=== PATIENT | female | born 1955 | race American Indian/Alaskan Native ===

== ENCOUNTER 2016-05-05 13:35 | Emergency (ER) | payer BC ==
--- NOTE | 2016-05-05 14:40 | Emergency Department Report ---
HPI - General Chief Complaint: Vaginal Bleeding Time Seen by Provider: 05/05/16 14:13 - HPI HPI: This is a 60-year-old -Turkish female who presents to the emergency department with a 2 to three-day history of heavy vaginal bleeding. This is more of a acute on chronic issue as the patient has been dealing with vaginal bleeding issues for months. The patient says she has had ultrasounds and CT scans and they have not found any signs of fibroids or any malignancy. The patient is scheduled to have a hysteroscopy on Thursday to further look into her bleeding etiology. Patient follows with Dr. Rivera for [employer]. They previously had tried progesterone but that did not work. Patient was placed on oral contraception as which did help slow the bleeding, but the patient ran out on , and her symptoms began 1-2 days after. She called the [employer] service and was told to come to the emergency department for further evaluation. She denies any shortness of breath, fever, nausea, vomiting, back pain. Patient was told by a pharmacist to take some ibuprofen which did help with some of the discomfort but did not help with the bleeding. Patient says she is going through a pad about every 30 minutes to 1 hour. ED Past Medical Hx - Medications Home Medications: Home Medications Medication Instructions Recorded Confirmed Last Taken Type Meloxicam 15 mg PO QDAY PRN 05/05/16 05/05/16 Unknown History Naproxen [Naproxen TAB] 250 mg PO PRN PRN 05/05/16 05/05/16 Unknown History ED Review of Systems ROS: Stated complaint: BLOOD CLOTS Other details as noted in HPI Comment: All other systems reviewed and negative Constitutional: denies: chills, fever Eyes: denies: eye pain, eye discharge, vision change ENT: denies: ear pain, throat pain Respiratory: denies: cough, shortness of breath, wheezing Cardiovascular: denies: chest pain, palpitations Gastrointestinal: abdominal pain. denies: nausea, diarrhea Genitourinary: other (vaginal bleeding). denies: urgency, dysuria, discharge Musculoskeletal: denies: back pain, joint swelling, arthralgia Skin: denies: rash, lesions Physical Exam - Physical Exam Vital Signs: Vital Signs 05/05/16 13:58 Temperature 97.9 F Pulse Rate 86 Respiratory 16 Rate Blood Pressure 144/79 O2 Sat by Pulse 100 Oximetry Physical Exam: GENERAL: The patient is well-developed well-nourished. HEENT: Normocephalic. Atraumatic. Extraocular motions are intact. Patient has moist mucous membranes. Pupils equal reactive to light bilaterally. NECK: Supple. Trachea is midline. CHEST/LUNGS: Clear to auscultation. There is no respiratory distress noted. HEART/CARDIOVASCULAR: Regular. There is no tachycardia. There is no gallop rub or murmur. ABDOMEN: Abdomen is soft, nontender. Patient has normal bowel sounds. There is no abdominal distention. SKIN: There is no rash. There is no edema. There is no diaphoresis. NEURO: The patient is awake, alert, and oriented. The patient is cooperative. The patient has no focal neurologic deficits. The patient has normal speech. MUSCULOSKELETAL: There is no tenderness or deformity. There is no limitation range of motion. There is no evidence of acute injury. Cap refill less than 2 seconds. ED Course Vital Signs 05/05/16 13:58 Temperature 97.9 F Pulse Rate 86 Respiratory 16 Rate Blood Pressure 144/79 O2 Sat by Pulse 100 Oximetry - Consultations Consultation #1: I spoke with Dr. Houston, on-call for Dr. Rivera. She recommends that the patient get a IV dose of Premarin 25 mg 1. She was able to tell me that the patient has an appointment with Dr. Rivera for preop tomorrow morning. She suggests giving the patient the primary and and having her follow-up tomorrow for her scheduled appointment. 05/05/16 15:55 ED Medical Decision Making - Lab Data Result diagrams: 05/05/16 14:55 05/05/16 14:55 - Medical Decision Making 60-year-old female with acute on chronic vaginal bleeding that has gotten heavy over the last 2 days. Patient's labs have shown to be relatively unremarkable with a hemoglobin of 12. No signs of infection, electrolyte abnormalities, renal insufficiency her glucose abdomen maladies. Patient's vital signs are stable including being afebrile and no tachycardia. There does not appear to be any symptomatic anemia, even before the labs were checked. I spoke with the [employer] service for this patient and they suggest a dose of Premarin and for the patient to keep her appointment tomorrow with Dr. Rivera. All this information was given to the patient. She does appear stable for discharge home at this time. She will follow-up with her appointment tomorrow but will return to the ER sooner with any worsening or symptoms or any acute distress. Critical Care Time: No Critical care attestation.: If time is entered above; I have spent that time in minutes in the direct care of this critically ill patient, excluding procedure time. ED Disposition Clinical Impression: Vaginal bleeding Disposition: DISCHARGED TO HOME OR SELFCARE Is pt being admited?: No Does the pt Need Aspirin: No Condition: Good Instructions: Menorrhagia (ED) Additional Instructions: Please follow-up with Dr. Rivera for your appointment tomorrow as previously scheduled. Return to the emergency department with any worsening of your symptoms or any acute distress. Referrals: PRIMARY CARE, [Primary Care Provider] - 3-5 Days WONG RIVERA MD [Staff Physician] - 05/06/16 Time of Disposition: 17:17
[2016-05-05 15:18] LABS: Basophils % (Auto) 0.3 % (0.0-1.8); Eosinophils % (Auto) 1.7 % (0.0-4.3); Hematocrit 36.1 % (30.3-42.9); Hemoglobin 12.1 gm/dl (10.1-14.3); Mean Corpuscular HGB Conc 34 % (30-34); Mean Corpuscular Hemoglobin 29 pg (28-32); Mean Corpuscular Volume 85 fl (79-97); Platelet Count 325 K/mm3 (140-440); Red Blood Count 4.25 M/mm3 (3.65-5.03); Red Cell Distribution Width 14.7 % (13.2-15.2); White Blood Count 8.8 K/mm3 (4.5-11.0)
[2016-05-05 15:29] LABS: BUN/Creatinine Ratio 12.22; Blood Urea Nitrogen 11 mg/dL (7-17); Calcium 9.4 mg/dL (8.4-10.2); Carbon Dioxide 21 mmol/L (22-30); Chloride 102.6 mmol/L (98-107); Glucose 123 mg/dL (65-100); INR 0.99 (0.87-1.13); Partial Thromboplastin Time 23.9 Sec. (24.2-36.6); Potassium 4.1 mmol/L (3.6-5.0); Sodium 140 mmol/L (137-145)
[2016-05-05 15:33] LABS: Anion Gap 21 mmol/L
[2016-05-05] MEDS ORDERED: PREMARIN IV ONE (15:48)
[2016-05-05] MEDS ORDERED: WATER FOR INJ (PF) 10 ML ONE (17:33)
[2016-05-05] MEDS ORDERED: NACL 0.9% 500 ML 500 ML ONE (17:44)
[2016-05-05] MEDS ORDERED: NACL 0.9% 500 ML 500 ML IV ONE (18:00)
[2016-05-05 18:38] VITALS: BP 141/91
== END 2016-05-05 18:30 | disposition home or self-care (01) ==
LOC: ED 13:35
DX: N93.9 Abnormal uterine and vaginal bleeding, unspecified (principal)
CPT/HCPCS: 36415; 80048; 85025; 85610; 85730; 86850; 86900; 86901; 96374; 99283; J1410; J7040

== ENCOUNTER 2016-05-09 08:32 | Day surgery (SDC) | payer BC ==
--- NOTE | 2016-05-06 13:59 | Anesthesia Consultation ---
Anesthesia Consult and Med Hx Date of service: 05/06/16 (Scheduled for Hysteroscopy and D&C w/ Dr. Davalos on 05/09/16) - Airway Anesthetic Teeth Evaluation: Good ROM Head & Neck: Adequate Mental/Hyoid Distance: Adequate Mallampati Class: Class II Intubation Access Assessment: Probably Good - Pulmonary Exam CTA: Yes - Cardiac Exam Cardiac Exam: RRR - Pre-Operative Health Status ASA Pre-Surgery Classification: ASA2 Proposed Anesthetic Plan: General - Pre-Anesthesia Comment Pre-Anesthesia Comments: No previous anesthesia complications. - Pulmonary Hx Smoking: No Hx Asthma: No - Cardiovascular System Hx Hypertension: No - Central Nervous System Hx Psychiatric Problems: No - Gastrointestinal Hx Gastroesophageal Reflux Disease: No - Endocrine Hx Renal Disease: No Hx Non-Insulin Dependent Diabetes: No Hx Thyroid Disease: No - Hematic Hx Anemia: Yes (Was in ER last 2 days for vaginal bleeding) Hx Sickle Cell Disease: No - Other Systems Hx Alcohol Use: No Hx Cancer: No Hx Obesity: No
--- NOTE | 2016-05-08 15:27 | History and Physical Report ---
History of Present Illness Date of examination: 05/06/16 History of present illness: Patient has been reassessed/reevaluated/re-examined. H&P has been reviewed. No interval changes. This is a 60 years old female who presents withpost menopausal bleeding. The symptoms began 1 month ago. The patient complains of menses and heavy bleeding. Menstrual periods have been irregular and with excessive flow. Patient has failled medical therapy. Patient's work up has included hysterosonogram w/o lesions and a benign endometrial biiopsy Patient desires definitive treatment Vital Signs: Patient Profile: 60 Years Old Female Height: 63 inches (160.02 cm) Weight: 216 pounds (98.18 kg) BMI: 38.26 BSA: 2.00 Past History : 2 Term Births: 2 Premature Births: 0 Living Children: 2 Para: 2 Mult. Births: 0 Prev : 0 Prev. attempt? 0 Aborta: 0 Elect. Ab: 0 Spont. 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 Risk Factors: Smoked Tobacco Use: Never smoker Smokeless Tobacco Use: Never Passive smoke exposure: no Drug use: no HIV high-risk behavior: no Alcohol use: no Exercise: no Seatbelt use: 100 % Review of Systems See HPI General Complains of fatigue. Denies fever, chills, sweats, anorexia, weakness, malaise, weight loss and sleep disorder. Complains of abnormal vaginal bleeding. Denies vaginal discharge, incontinence, dysuria, hematuria, urinary frequency, amenorrhea, menorrhagia, pelvic pain, genital sores, decreased libido , painful periods, painful sex, urinary urgency, hot flashes, vaginal dryness, vaginal itching and vaginal odor. CV Denies chest pains, palpitations, syncope, dyspnea on exertion, orthopnea, PND and peripheral edema. Resp Denies cough, dyspnea at rest, excessive sputum, hemoptysis, wheezing and pleurisy. GI Denies nausea, vomiting, diarrhea, constipation, change in bowel habits, abdominal pain, melena, hematochezia, jaundice, gas/bloating, indigestion/ heartburn, dysphagia and odynophagia. Breast Denies left breast lump, right breast lump, nipple discharge, bloody discharge from nipple, breast pain, abnormal mammogram and breast enlargement. Psych Denies depression, anxiety, irritability and mood swings. Past History Past Medical History: other (See HPI) Past Surgical History: Other (See HPI) Family history: other (See HPI) Medications and Allergies Allergies Allergy/AdvReac Type Severity Reaction Status Date / Time No Known Allergies Allergy Unverified 05/05/16 15:59 Home Medications Medication Instructions Recorded Confirmed Last Taken Type Meloxicam 15 mg PO QDAY PRN 05/05/16 05/09/16 05/02/16 History Naproxen [Naproxen TAB] 250 mg PO PRN PRN 05/05/16 05/09/16 04/25/16 History Active Meds: Active Medications Celecoxib (Celebrex) 200 mg PO PREOP NR Stop: 05/09/16 23:29 Famotidine (Pepcid) 20 mg PO PREOP NR Stop: 05/09/16 23:29 Gabapentin (Neurontin) 300 mg PO PREOP NR Stop: 05/09/16 23:59 Sodium Chloride (Nacl 0.9% 1000 Ml) 1,000 mls @ 100 mls/hr IV DIRECT PAUL Midazolam HCl (Versed) 2 mg IV PREOP NR Stop: 05/09/16 23:59 Review of Systems Constitutional: other (See HPI) Exam - Physical Exam Narrative exam: HEENT: normocephalic, no lesions or deformities Skin no significant abnormal lesions or rashes Chest: respiratory effort normal, clear to auscultation CV: regular, normal S1-S2, no murmur, no rub, no gallop Abdomen: Obese, normal bowel sounds, soft, nontender, no HSM Musculoskeletal: grossly normal ROM in joints, no joint tenderness or muscle weakness Neuro: no gross anomalities Extremities: no clubbing, cyanosis, or edema [employer]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 Questions answered. Diagnosis of post menopausal explained. Malignancy risk explained to patient. Medical and surgical treatment options discussed Patient has failed medical therapy Patient desires definitive treatment. Patient declined hysterectomy. Patient desires conservative therapy Patient desires hysteroscopy Discussed risk of surgery including infection, bleeding and risk of perforating her uterus. Questions answered. Patient understands and desires to proceed
[~2016-05-09 08:32] MED LIST: NACL 0.9% 1000 ML 1,000 ML IV SCH; NEURONTIN PO NR; PEPCID PO NR; VERSED IV NR
[2016-05-09] MEDS ORDERED: PERCOCET 5/325 PO PRN (08:54)
[2016-05-09] MEDS ORDERED: ZOFRAN IV PRN (08:54)
[2016-05-09] MEDS ORDERED: DILAUDID IV PRN (08:54)
[2016-05-09] MEDS ORDERED: DIPRIVAN 10 MG/ML IV ONE (09:52)
[2016-05-09] MEDS ORDERED: SUBLIMAZE ONE (09:52)
[2016-05-09] MEDS ORDERED: NACL 0.9% IR ONE (10:27)
--- NOTE | 2016-05-09 10:27 | Anesthesia Day of Surgery ---
Anesthesia Day of Surgery - Day of Surgery Patient Examined: Yes Patient H&P Reviewed: Yes Patient is NPO: Yes
[2016-05-09] MEDS ORDERED: XYLOCAINE MPF 2% ONE (10:33)
[2016-05-09] MEDS ORDERED: TORADOL ONE (10:33)
[2016-05-09] MEDS ORDERED: ZOFRAN ONE (10:33)
[2016-05-09] MEDS ORDERED: ePHEDrine SULFATE ONE (10:35)
--- NOTE | 2016-05-09 10:53 | Short Stay Summary ---
Short Stay Documentation Date of service: 05/09/16 Narrative H&P: See dictated H&P - History Past Medical History: other (See HPI) Past Surgical History: Other (See HPI) - Allergies and Medications Current Medications: Allergies No Known Allergies Allergy (Unverified 05/05/16 15:59) Home Medications Medication Instructions Recorded Confirmed Last Taken Type Meloxicam 15 mg PO QDAY PRN 05/05/16 05/09/16 05/02/16 History Naproxen [Naproxen TAB] 250 mg PO PRN PRN 05/05/16 05/09/16 04/25/16 History Active Medications Celecoxib (Celebrex) 200 mg PO PREOP NR Stop: 05/09/16 23:29 Last Admin: 05/09/16 09:12 Dose: 200 mg Famotidine (Pepcid) 20 mg PO PREOP NR Stop: 05/09/16 23:29 Last Admin: 05/09/16 09:12 Dose: 20 mg Gabapentin (Neurontin) 300 mg PO PREOP NR Stop: 05/09/16 23:59 Last Admin: 05/09/16 09:12 Dose: 300 mg Hydromorphone HCl (Dilaudid) 0.5 mg IV Q10MIN PRN PRN Reason: Pain , Severe (7-10) Stop: 05/09/16 18:00 Sodium Chloride (Nacl 0.9% 1000 Ml) 1,000 mls @ 100 mls/hr IV DIRECT PAUL Last Admin: 05/09/16 09:25 Dose: 100 mls/hr Midazolam HCl (Versed) 2 mg IV PREOP NR Stop: 05/09/16 23:59 Last Admin: 05/09/16 09:35 Dose: 2 mg Ondansetron HCl (Zofran) 4 mg IV ONCE PRN PRN Reason: Nausea And Vomiting Stop: 05/09/16 18:00 Oxycodone/Acetaminophen (Percocet 5/325) 1 tab PO ONCE PRN PRN Reason: Pain, Moderate (4-6) Stop: 05/09/16 18:00 - Brief post op/procedure progress note Date of procedure: 05/09/16 Pre-op diagnosis: see dictated operative note - Hospital course Hospital course: Patient was admitted underwent the above procedure without complication. Patient was discharged following outpatient operative protocol - Disposition Condition at discharge: Good Disposition: DISCHARGED TO HOME OR SELFCARE - Discharge Diagnoses (1) Post-menopausal bleeding Status: Acute Short Stay Discharge Plan Activity: advance as tolerated Diet: regular Additional Instructions: Patient called office for fever chills nausea vomiting or pain not controlled by pain medicine patient also to call office for excessive vaginal bleeding Follow up with: PRIMARY CARE, [Primary Care Provider] - 7 Days Prescriptions: Ibuprofen [Motrin 800 MG tab] 800 mg PO Q6H PRN #30 tablet PRN Reason: Pain oxyCODONE /ACETAMINOPHEN [Percocet 5/325 mg] 1 - 2 tab PO Q4H PRN #30 tablet PRN Reason: Pain, Moderate Doxycycline [Vibramycin CAP] 100 mg PO Q12HR #14 capsule
--- NOTE | 2016-05-09 10:57 | Operative Report ---
[id number] Post-operative diagnosis: Same Procedure name(s): Operative hysteroscopy with dilatation and curettage Surgeon: Jason Davalos MD [employer] Operator: None Anesthesia: General EBL: Minimal Complications: None Findings: Within the thickened endometrium no distinct lesions seen of ostium was seen bilaterally Specimen(s): Endometrial curetting Procedure: Patient was brought to operating room. Where general anesthesia was induced on difficulty. She was placed in the dorsal lithotomy position. Prepped and draped in usual sterile manner. Urinary bladder was emptied with a red rubber catheter. Speculum was placed in the vagina. Tenaculum was placed at 12:00. The cervix was dilated progressively to operative hysteroscope could be placed without any difficulty. The hysteroscope was placed through the cervical os without any complications with the findings noted above. The was able to bend her creatinine today gritty sensation was felt throughout the uterine cavity removed a moderate amount of tissue. The passes with the polyp forceps revealed no further tissue again the banjo curetting was done without any return of further tissue. Post procedure hysteroscopy showed a very thin endometrium. Our instruments are removed. The patient tolerated the procedure well and was awakened in the operating room. Accompanied to the recovery room in good condition
[2016-05-09 12:28] VITALS: BP 126/79
== END 2016-05-09 12:30 | disposition home or self-care (01) ==
LOC: OR 08:32
PROVIDERS: ATTEND Obstetrics & Gynecology
DX: N85.02 Endometrial intraepithelial neoplasia [EIN] (principal); I10 Essential (primary) hypertension; D64.9 Anemia, unspecified; Z98.890 Other specified postprocedural states
CPT/HCPCS: 58558; 81025; 86850; 86900; 86901; 88305; A4217; J1885; J2250; J2405; J2704; J3010; J7030

== ENCOUNTER 2020-03-30 09:05 | Day surgery (SDC) | payer MEDICARE ==
[~2020-03-30 09:05] MED LIST changes: -NACL 0.9% 1000 ML 1,000 ML IV SCH; -NEURONTIN PO NR; -PEPCID PO NR; +SODIUM CHLORIDE 0.9% 1000 ML 1,000 ML IV SCH; -VERSED IV NR
[2020-03-30] MEDS ORDERED: propofoL 200 MG/20 ML VIAL IV ONE (11:02)
[2020-03-30] MEDS ORDERED: LIDOCAINE MPF (2%) 20 MG/1 ML VIAL 5 ML ONE (11:02)
--- NOTE | 2020-03-30 11:22 | Procedure Note ---
Date of procedure: 03/30/20 Pre-op diagnosis: GERD/ Abdominal Pain Post-op diagnosis: other (Mild to Moderate Erosive Esophagitis/ Gastritis/ R/O Celiac Disease) Procedure: EGD with biopsy Anesthesia: MAC Surgeon: KEIKO LINDO Estimated blood loss: minimal Pathology: list Specimen disposition: to lab Condition: stable Disposition: same day (Treat with PPI,prn bentyl and OTC Probiotic use. Avoid aspirin and NSAID for 5 days; otherwise resume home medication and follow up in 1 to 2 weeks ([phone]).)
--- NOTE | 2020-03-30 11:58 | Operative Report ---
PROCEDURE: Esophagogastroduodenoscopy with biopsy. INDICATIONS: This is a 64-year-old slightly obese -[place] female who has been having epigastric pain as well as some abdominal pain and GERD symptoms. EGD was done to assess for the problem. DESCRIPTION OF PROCEDURE: The procedure was done after getting informed consent with MAC anesthesia. Instrument was passed through the hypopharynx into the esophagus, which showed some [id number] erosive esophagitis. The stomach showed some gastritis in the antrum. Biopsy was done from the body with the gastric antrum and angular incisura to rule out for H. pylori and atrophic gastritis. The pylorus was patent. The duodenum in the first and second portion appeared normal. Biopsy was done from the second part to rule out for possible celiac disease. ASSESSMENT: Gastroesophageal reflux disease symptoms, abdominal pain, mild to moderate erosive esophagitis, gastritis, rule out celiac disease. PLAN: To treat the patient with PPI, p.r.n. dose of Bentyl as well as probiotics, have the patient avoid aspirin and aspirin-related products for the next few days and follow up in the office in 1-2 weeks' time. The procedure was done in the GI lab with assistance of the GI lab team, which included RN, diana Neil Loretta and with assistance of anesthesia. JOB# [id number] MIHAELA/PAULETTE
--- NOTE | 2020-03-30 11:59 | Operative Report ---
No dictation. JOB# [id number] MIHAELA/PAULETTE
--- NOTE | 2020-03-30 14:11 | Post Anesthesia Evaluation ---
- Post Anesthesia Evaluation Patient Participated: Yes Airway Patent: Yes Stable Respiratory Function: Yes Nausea/Vomiting: No Temp > 96.8F: Yes Pain Manageable: Yes Adequeate Hydration: Yes Anesthesia Complications: No
--- NOTE | 2020-03-30 14:11 | Anesthesia Day of Surgery ---
Anesthesia Day of Surgery - Day of Surgery Patient Examined: Yes Patient H&P Reviewed: Yes Patient is NPO: Yes
--- NOTE | 2020-03-30 14:11 | Anesthesia Consultation ---
Anesthesia Consult and Med Hx Date of service: 03/30/20 - Airway Anesthetic Teeth Evaluation: Good ROM Head & Neck: Adequate Mental/Hyoid Distance: Adequate Mallampati Class: Class IV Intubation Access Assessment: Possibly Difficult - Pulmonary Exam CTA: Yes - Cardiac Exam Cardiac Exam: RRR - Pre-Operative Health Status ASA Pre-Surgery Classification: ASA2 Proposed Anesthetic Plan: MAC - Pulmonary Hx Respiratory Symptoms: No - Cardiovascular System Hx Hypertension: No - Central Nervous System CVA: No - Gastrointestinal Hx Gastroesophageal Reflux Disease: Yes - Endocrine Hx Renal Disease: No Hx Liver Disease: No Hx Insulin Dependent Diabetes: No Hx Non-Insulin Dependent Diabetes: No Hx Thyroid Disease: No - Other Systems Hx Obesity: Yes (BMI 38)
[2020-03-30 19:17] VITALS: BP 132/82
== END 2020-03-30 09:06 | disposition home or self-care (01) ==
LOC: GIO 09:05
DX: K21.00 Gastro-esophageal reflux disease with esophagitis, without bleeding (principal); R10.9 Unspecified abdominal pain; K29.50 Unspecified chronic gastritis without bleeding; B96.81 Helicobacter pylori [H. pylori] as the cause of diseases classified elsewhere; N95.0 Postmenopausal bleeding; E66.9 Obesity, unspecified; M79.10 Myalgia, unspecified site; M19.90 Unspecified osteoarthritis, unspecified site; Z79.899 Other long term (current) drug therapy; Z98.890 Other specified postprocedural states; Z68.38 Body mass index [BMI] 38.0-38.9, adult
CPT/HCPCS: 43239; 88305; 88342; J2704; J7030

== ENCOUNTER 2020-07-20 08:27 | Day surgery (SDC) | payer MEDICARE ==
--- NOTE | 2020-07-20 09:42 | Anesthesia Day of Surgery ---
Anesthesia Day of Surgery - Day of Surgery Patient Examined: Yes Patient H&P Reviewed: Yes Patient is NPO: Yes
--- NOTE | 2020-07-20 09:44 | Anesthesia Consultation ---
Anesthesia Consult and Med Hx Date of service: 07/20/20 - Airway Anesthetic Teeth Evaluation: Bridges ROM Head & Neck: Adequate Mental/Hyoid Distance: Adequate Mallampati Class: Class II Intubation Access Assessment: Probably Good - Pre-Operative Health Status ASA Pre-Surgery Classification: ASA2 Proposed Anesthetic Plan: MAC - Pulmonary Hx Asthma: No Hx Respiratory Symptoms: No Hx Pneumonia: No - Cardiovascular System Hx Hypertension: No - Central Nervous System CVA: No Hx Psychiatric Problems: No - Gastrointestinal Hx Ulcer: Yes Hx Gastroesophageal Reflux Disease: Yes - Endocrine Hx Renal Disease: No Hx End Stage Renal Disease: No Hx Liver Disease: No Hx Insulin Dependent Diabetes: No Hx Non-Insulin Dependent Diabetes: No Hx Thyroid Disease: No - Hematic Hx Anemia: Yes - Other Systems Hx Cancer: No Hx Obesity: Yes (BMI 38) - Additional Comments Anesthesia Medical History Comments: Here [phone]
[2020-07-20] MEDS ORDERED: LIDOCAINE MPF (2%) 20 MG/1 ML VIAL 5 ML ONE (10:34)
[2020-07-20] MEDS ORDERED: propofoL 200 MG/20 ML VIAL IV ONE ×2 (10:34→10:47)
--- NOTE | 2020-07-20 11:09 | Procedure Note ---
Date of procedure: 07/20/20 Pre-op diagnosis: Colon Polyp Screening/ Abdominal Pain/ Hematochezia Post-op diagnosis: other (Solitary,Small Cecal Polyp/Solitary,Small Left Colon Diverticuli/ R/O Microscopic Colitis/ R/O Ileitis) Procedure: Colonoscopy with biopsy [place] [facility] [place] KEIKO LINDO Estimated blood loss: minimal Pathology: list Specimen disposition: to lab Condition: stable Disposition: same day (Treat with prn bentyl and OTC Probiotic and Hemorrhoidal medication. Avoid aspirin and NSAID and anticoagulants for 4 days; otherwise resume home medication.)
--- NOTE | 2020-07-20 11:17 | Operative Report ---
PROCEDURE: Colonoscopy with biopsy. INDICATIONS: This is a 64-year-old female who has been complaining of some lower abdominal pain and discomfort and on occasion some hematochezia. Colonoscopy was done to assess for any colon polyps or any significant lower GI pathology and to do a banding if needed. DESCRIPTION OF PROCEDURE: The procedure was done after getting informed consent with MAC anesthesia. Initial rectal exam was unremarkable. Instrument was passed through the rectum onto the cecum, which was identified with ileocecal valve and the appendiceal orifice, there was a small 7-8 mm solitary cecal polyp noted that was removed by cold biopsy with minimal bleeding. The terminal ileum was intubated, showed normal mucosa. Biopsy was done to rule out for possible ileitis. Additional biopsy was done from the cecum, ascending colon, transverse colon, descending colon, and sigmoid to rule out for possible microscopic colitis. There was a solitary minor diverticula noted in the left colon and biopsies were associated with minimal bleeding and the rectum showed mild to moderate internal hemorrhoid, which may have caused hematochezia what was not significant enough for banding. ASSESSMENT: Colon polyp screening, abdominal pain, solitary small cecal polyps, solitary minor diverticula involving the left colon, rule out microscopic colitis, rule out ileitis, mild to moderate internal hemorrhoids, not significant enough for banding. PLAN: To treat the patient with Bentyl on a p.r.n. basis for abdominal pain. Encouraged the patient to take probiotics. Also encouraged the patient to take increased fiber supplements and follow up in the office in 1-2 weeks' time. The patient will be asked to avoid aspirin and aspirin-related products for the next few days because of the biopsies. Otherwise, resume home medication and follow up in the office in 1-2 weeks' time. The procedure was done in the GI lab with assistance of the GI lab team, which included the GI nurse; Fredis ortiz and with assistance of anesthesia. JOB# [id number] MIHAELA/PAULETTE
[2020-07-20 12:20] VITALS: BP 131/75
--- NOTE | 2020-07-20 15:35 | Post Anesthesia Evaluation ---
- Post Anesthesia Evaluation Patient Participated: Yes Airway Patent: Yes Stable Respiratory Function: Yes Nausea/Vomiting: No Temp > 96.8F: Yes Pain Manageable: Yes Adequeate Hydration: Yes Anesthesia Complications: No Block Receding Appropriately: Not Applicable Patient on Ventilator: No
== END 2020-07-20 12:05 | disposition home or self-care (01) ==
LOC: GIO 08:27
DX: R10.30 Lower abdominal pain, unspecified (principal); K63.5 Polyp of colon; K57.30 Diverticulosis of large intestine without perforation or abscess without bleeding; K63.89 Other specified diseases of intestine; K64.8 Other hemorrhoids; E66.9 Obesity, unspecified; K21.9 Gastro-esophageal reflux disease without esophagitis; Z68.38 Body mass index [BMI] 38.0-38.9, adult; Z79.899 Other long term (current) drug therapy; Z98.890 Other specified postprocedural states
CPT/HCPCS: 45380; 88305; J2704; J7030